=== PATIENT | female | born 1960 | race Caucasian/White ===

== ENCOUNTER 2024-08-04 16:13 | Emergency (ER) | payer MEDICAID ==
[2024-08-04] MEDS: cloNIDine 0.1 MG Tab PO ONE (17:32)
[2024-08-04 17:37] LABS: BASOPHILS PERCENT AUTO 0.5 % (0.1-1.3); EOSINOPHILS ABSOLUTE AUTO 0.08 K/uL (0.00-0.40); HEMATOCRIT 33.1 % (34.3-46.0); HEMOGLOBIN 10.9 g/dL (11.2-15.5); LYMPHOCYTES ABSOLUTE AUTO 2.13 K/uL (0.8-3.3); LYMPHOCYTES PERCENT AUTO 52.6 % (11.4-47.7); MEAN CORPUSCULAR HEMOGLOBIN 33.6 pg (31.6-35.5); MEAN CORPUSCULAR HGB CONC 32.9 g/dL (31.6-35.5); MEAN CORPUSCULAR VOLUME 102.2 fL (81.4-99.0); MONOCYTES ABSOLUTE AUTO 0.31 K/uL (0.20-0.90); MONOCYTES PERCENT AUTO 7.7 % (3.3-12.6); NEUTROPHILS ABSOLUTE AUTO 1.51 K/uL (1.0-7.6); NEUTROPHILS PERCENT AUTO 37.2 % (40.0-78.1); PLATELET COUNT,PLT 140 K/uL (130-375); RED BLOOD CELL COUNT 3.24 M/uL (3.77-5.24); WHITE BLOOD CELL COUNT,WBC 4.1 K/uL (3.2-11.0)
[2024-08-04 17:39] LABS: BASOPHILS ABSOLUTE AUTO 0.02 K/uL (0.00-0.10)
[2024-08-04 18:06] LABS: A/G RATIO 1.2 (1.2-2.2); ALANINE AMINOTRANSFERASE,ALT 17 U/L (12-78); ALBUMIN 3.3 g/dL (3.4-5.0); ALKALINE PHOSPHATASE 80 U/L (46-116); ANION GAP 7.2 mmol/L (5.0-14.0); ASPARTATE AMNIOTRANSFERASE,AST 23 U/L (15-37); BILIRUBIN TOTAL 0.8 mg/dL (0.2-1.0); BLOOD UREA NITROGEN,BUN 19 mg/dL (7-18); CALCIUM 8.9 mg/dL (8.5-10.1); CARBON DIOXIDE,CO2 29 mmol/L (21-32); CHLORIDE,CL 106 mmol/L (100-108); CREATININE 0.8 mg/dL (0.6-1.0); EST CRCL DRUG DOSING (CG) 63.93 mL/min; ESTIMATED GFR 82 mL/min (>60); GLUCOSE RANDOM 95 mg/dL (74-106); POTASSIUM,K 3.9 mmol/L (3.6-5.2); PROTEIN TOTAL,TP 6.1 g/dL (6.4-8.2); SODIUM,NA 142 mmol/L (140-148); TSH ULTRASENSITIVE 0.582 uIU/mL (0.358-3.740)
[2024-08-04 18:18] LABS: APPEARANCE,URINE CLEAR (CLEAR); BILIRUBIN,URINE NEGATIVE (NEGATIVE); COLOR,URINE YELLOW (YELLOW); GLUCOSE,URINE NEGATIVE (NEGATIVE); KETONES,URINE 15 mg/dL (NEGATIVE); LEUKOCYTE ESTERASE,URINE NEGATIVE (NEGATIVE); NITRITE,URINE NEGATIVE (NEGATIVE); OCCULT BLOOD,URINE NEGATIVE (NEGATIVE); PH,URINE 6.5 (5.0-8.0); PROTEIN,URINE NEGATIVE (NEGATIVE); UROBILINOGEN,URINE 0.2 EU/dL (0.2-1.0)
[2024-08-04 18:25] LABS: AMORPHOUS SEDIMENT,URINE NOT SEEN; AMPHETAMINES SCREEN, URINE NEGATIVE (NEGATIVE); BACTERIA,URINE NOT SEEN; BARBITURATE SCREEN,URINE NEGATIVE (NEGATIVE); BENZODIAZEPINES SCREEN,URINE NEGATIVE (NEGATIVE); EPITHELIAL CELLS,URINE RARE; METHADONE SCREEN, URINE NEGATIVE (NEGATIVE); METHAMPHETAMINES SCREEN, URINE NEGATIVE (NEGATIVE); MUCUS,URINE NOT SEEN; OXYCODONE SCREEN,URINE NEGATIVE (NEGATIVE); PROPOXYPHENE SCREEN,URINE NEGATIVE (NEGATIVE); RBC,URINE NOT SEEN (0-5); THC SCREEN,URINE 50 NG/ML NEGATIVE (NEGATIVE); WBC,URINE 0-5 (0-5)
[2024-08-04] MEDS: Metoprolol Succinate 25 MG Tab.ER PO ONE (18:41)
== END 2024-08-04 18:48 | disposition home or self-care (01) ==
LOC: JP.ED 16:13
DX: I10 Essential (primary) hypertension (principal); Z88.5 Allergy status to narcotic agent; Z91.040 Latex allergy status; Z88.2 Allergy status to sulfonamides; Z79.899 Other long term (current) drug therapy
CPT/HCPCS: 36415; 80053; 80305; 81001; 84443; 84484; 85025; 93005; 99283; A9270; 93010